=== PATIENT | female | born 1965 | race Caucasian/White ===

== ENCOUNTER 2022-05-06 06:24 | Inpatient (IN) | payer MEDICARE, OTHER ==
[~2022-05-06] VITALS: Ht 160 cm; Wt 75.2 kg
[2022-05-06] MEDS ORDERED: SODIUM CHLORIDE 0.9% 1,000 ML IV ONE ×3 (06:45→22:45)
[2022-05-06] MEDS ORDERED: ONDANSETRON HCL 4 MG/2 ML VIAL IV ONE (07:00)
[2022-05-06] MEDS ORDERED: SODIUM CHLORIDE 0.9% 1,000 ML IVB ONE (07:15)
[2022-05-06 07:28] LABS: Basophils # (auto) 0 10 ^3/uL (0-0.2); Basophils % (auto) 0.3 % (0.0-2.0); Eosinophils # (auto) 0 10 ^3/uL (0-0.8); Eosinophils % (auto) 0.2 % (0.0-7.0); Hematocrit 55.1 % (36.0-46.0); Hemoglobin 18.1 g/dL (12.2-16.2); Lymphocytes % (auto) 10.9 % (10.0-50.0); Mean Corpuscular Hemoglobin 29.3 pg (28.0-32.0); Mean Corpuscular Hgb Conc. 32.9 g/dL (32.0-36.0); Mean Corpuscular Volume 88.9 fL (80.0-100.0); Monocytes # (auto) 0.5 10 ^3/uL (0-1.3); Monocytes % (auto) 5.7 % (0.0-12.0); Neutrophils # (auto) 7.2 10 ^3/uL (1.6-8.6); Neutrophils % (auto) 82.9 % (37.0-80.0); Nucleated Red Blood Cells % 0.8 %; Red Blood Cells 6.19 10^6/uL (4.0-5.20); Red Cell Distribution Width 13.9 % (11.8-14.3); White Blood Cell 8.7 10^3/uL (4.4-10.8)
[2022-05-06 07:48] LABS: Potassium 4.8 mmol/L (3.5-5.1)
[2022-05-06 07:51] LABS: Magnesium 2.6 mg/dL (1.6-2.6)
[2022-05-06 07:52] LABS: Albumin 3.9 g/dL (3.4-5.0)
[2022-05-06 07:54] LABS: Bilirubin, Total 0.7 mg/dL (0.2-1.0); Total Protein 7.5 g/dL (6.4-8.2)
[2022-05-06 09:20] LABS: Urine Bacteria FEW /hpf (None Seen); Urine Blood TRACE /uL (Negative); Urine WBC 80 /hpf (0 - 5)
[2022-05-06] MEDS ORDERED: cefTRIAXone 1GM/50ML D5W 50 ML IV ONE (10:15)
[2022-05-06] MEDS ORDERED: InsuLIN REG 1unit/0.01ml Soln (100units/ml) IV ONE (10:15)
[2022-05-06] MEDS ORDERED: InsuLIN R (HUMAN) 100 UNITS in SODIUM CHL 0.9% 99 ML IV SCH (13:45)
[2022-05-06] MEDS ORDERED: INSULIN LANTUS (GLARGINE) 1 /0.01ml (100units/ml) SC ONE (13:45)
[2022-05-06] MEDS ORDERED: DEXTROSE (50%) 50ML SYRG IV PRN ×2 (13:45→22:45)
[2022-05-06] MEDS: SODIUM CHLORIDE 0.9% 1,000 ML IV SCH ×2 (14:06→16:49)
[2022-05-06] MEDS: ACCU-CHEK COMFORT CURVE STRIP VI SCH ×6 (14:08→22:23)
[2022-05-06] MEDS ORDERED: ONDANSETRON HCL 4 MG/2 ML VIAL IV PRN ×2 (14:15→15:00)
[2022-05-06] MEDS ORDERED: D5W/SOD CHL 0.45% 1,000 ML IV SCH (15:00)
[2022-05-06] MEDS ORDERED: SODIUM CHLORIDE 0.9% 1,000 ML IV SCH ×3 (15:00→19:45)
[2022-05-06] MEDS ORDERED: ACETAMINOPHEN 325 MG TAB PO PRN (15:15)
[2022-05-06 18:44] LABS: Calcium 8.8 mg/dL (8.5-10.1); Potassium 3.6 mmol/L (3.5-5.1)
[2022-05-06 18:47] LABS: BUN/Creatinine Ratio 21.1
[2022-05-07] MEDS: ACCU-CHEK COMFORT CURVE STRIP VI SCH ×4 (00:02→12:00)
[2022-05-07] MEDS: InsuLIN REG 1unit/0.01ml Soln (100units/ml) SC SCH ×4 (00:07→12:00)
[2022-05-07] MEDS: SODIUM CHLORIDE 0.9% 1,000 ML IV SCH ×2 (00:56→08:45)
[2022-05-07 01:01] LABS: BUN/Creatinine Ratio 18.7; Calcium 8.4 mg/dL (8.5-10.1); Potassium 3.5 mmol/L (3.5-5.1)
[2022-05-07 06:29] LABS: Chloride 115 mmol/L (98-107); Potassium 3.3 mmol/L (3.5-5.1); Sodium 144 mmol/L (136-145)
[2022-05-07 06:36] LABS: Anion Gap 11 (5-15); Blood Urea Nitrogen 11 mg/dL (7-18); Calcium 8.3 mg/dL (8.5-10.1); Carbon Dioxide 18 mmol/L (21-32); Glucose 167 mg/dL (74-106)
[2022-05-07 06:46] LABS: Basophils # (auto) 0 10 ^3/uL (0-0.2); Basophils % (auto) 0.4 % (0.0-2.0); Eosinophils # (auto) 0.1 10 ^3/uL (0-0.8); Eosinophils % (auto) 1.1 % (0.0-7.0); Hematocrit 42.4 % (36.0-46.0); Hemoglobin 14.2 g/dL (12.2-16.2); Lymphocytes # (auto) 1.2 10 ^3/uL (0.4-5.4); Lymphocytes % (auto) 21.2 % (10.0-50.0); Mean Corpuscular Hemoglobin 28.9 pg (28.0-32.0); Mean Corpuscular Hgb Conc. 33.5 g/dL (32.0-36.0); Mean Corpuscular Volume 86.4 fL (80.0-100.0); Monocytes # (auto) 0.5 10 ^3/uL (0-1.3); Monocytes % (auto) 8.6 % (0.0-12.0); Neutrophils % (auto) 68.7 % (37.0-80.0); Nucleated Red Blood Cells % 0.1 %; Red Blood Cells 4.91 10^6/uL (4.0-5.20); Red Cell Distribution Width 13.4 % (11.8-14.3); White Blood Cell 5.9 10^3/uL (4.4-10.8)
[2022-05-07 06:56] LABS: BUN/Creatinine Ratio 17.7; GFR African American 128 mL/min; GFR Non-African American 106 mL/min
[2022-05-07 10:00] VITALS: BP 139/70
[2022-05-07] MEDS ORDERED: INSULIN LANTUS (GLARGINE) 1 /0.01ml (100units/ml) SC SCH ×2 (10:00)
[2022-05-07] MEDS ORDERED: levoFLOXacin 500 MG TAB PO SCH (10:00)
[2022-05-07 13:14] LABS: Calcium 8.6 mg/dL (8.5-10.1); Potassium 3.3 mmol/L (3.5-5.1)
[2022-05-07 13:17] LABS: BUN/Creatinine Ratio 17.2
[2022-05-07] MEDS ORDERED: LEVO500T31 PO (13:36)
[2022-05-07] MEDS ORDERED: BLOO-200 XX (13:36)
[2022-05-07] MEDS ORDERED: INSUINJ37 SC (13:36)
[2022-05-07] MEDS ORDERED: INSU100I44 SC (13:36)
== END 2022-05-07 15:27 | disposition home health service (06) | DRG 638 ==
LOC: ER 06:24 → TELE 22:40
PROVIDERS: ADMIT Internal Medicine; ATTEND Internal Medicine
DX: E10.10 Type 1 diabetes mellitus with ketoacidosis without coma (principal); N39.0 Urinary tract infection, site not specified; H91.90 Unspecified hearing loss, unspecified ear; Z20.822 Contact with and (suspected) exposure to COVID-19; Z83.3 Family history of diabetes mellitus; Z91.018 Allergy to other foods
CPT/HCPCS: 36415; 71046; 74176; 80048; 80053; 81001; 82010; 82962; 83036; 83690; 83735; 85025; 87426; 87804; 93005; 96361; 96365; 96367; 96372; 96375; G0378; J0696; J1815; J2405

== ENCOUNTER 2022-05-08 11:36 | Inpatient (IN) | payer OTHER ==
[~2022-05-08] VITALS: Ht 162.6 cm; Wt 78.9 kg
[~2022-05-08 11:36] MED LIST: BLOO-200 XX; INSU100I44 SC; INSUINJ37 SC; LEVO500T31 PO
[2022-05-08 12:19] LABS: Basophils # (auto) 0 10 ^3/uL (0-0.2); Basophils % (auto) 0.3 % (0.0-2.0); Eosinophils # (auto) 0 10 ^3/uL (0-0.8); Eosinophils % (auto) 0.1 % (0.0-7.0); Hematocrit 47.8 % (36.0-46.0); Hemoglobin 16.1 g/dL (12.2-16.2); Lymphocytes # (auto) 0.5 10 ^3/uL (0.4-5.4); Lymphocytes % (auto) 5.1 % (10.0-50.0); Mean Corpuscular Hemoglobin 28.9 pg (28.0-32.0); Mean Corpuscular Hgb Conc. 33.6 g/dL (32.0-36.0); Monocytes # (auto) 0.5 10 ^3/uL (0-1.3); Monocytes % (auto) 5.2 % (0.0-12.0); Neutrophils # (auto) 9.3 10 ^3/uL (1.6-8.6); Neutrophils % (auto) 89.3 % (37.0-80.0); Red Blood Cells 5.56 10^6/uL (4.0-5.20); Red Cell Distribution Width 13.7 % (11.8-14.3); White Blood Cell 10.4 10^3/uL (4.4-10.8)
[2022-05-08 12:42] LABS: Albumin 3.3 g/dL (3.4-5.0); Anion Gap 17 (5-15); BUN/Creatinine Ratio 13.8; Blood Urea Nitrogen 9 mg/dL (7-18); Calcium 9.2 mg/dL (8.5-10.1); Carbon Dioxide 20 mmol/L (21-32); Chloride 106 mmol/L (98-107); GFR African American 121 mL/min; GFR Non-African American 100 mL/min; Glucose 262 mg/dL (74-106); Sodium 143 mmol/L (136-145)
[2022-05-08 12:45] LABS: Alanine Aminotransferase 20 U/L (13-56); Alkaline Phosphatase 100 U/L (45-117); Aspartate Aminotransferase 19 U/L (15-37); Bilirubin, Total 0.8 mg/dL (0.2-1.0); Total Protein 6.2 g/dL (6.4-8.2)
[2022-05-08 13:04] LABS: Potassium 2.8 mmol/L (3.5-5.1)
[2022-05-08] MEDS ORDERED: SODIUM CHLORIDE 0.9% 1,000 ML IV ONE (13:30)
[2022-05-08] MEDS ORDERED: ACETAMINOPHEN 325 MG TAB PO PRN (15:00)
[2022-05-08] MEDS ORDERED: ONDANSETRON HCL 4 MG/2 ML VIAL IV PRN (15:00)
[2022-05-08] MEDS ORDERED: DEXTROSE (50%) 50ML SYRG IV PRN (15:00)
[2022-05-08 15:17] LABS: Urine Bacteria NONE SEEN /hpf (None Seen); Urine Blood 2+ /uL (Negative); Urine Mucus FEW (None Seen); Urine Specific Gravity 1.028 (1.001-1.035); Urine WBC 33 /hpf (0 - 5)
[2022-05-08 16:32] LABS: BUN/Creatinine Ratio 13.8; Calcium 9.4 mg/dL (8.5-10.1)
[2022-05-08 16:51] LABS: Potassium 2.9 mmol/L (3.5-5.1)
[2022-05-08] MEDS: INSULIN LANTUS (GLARGINE) 1 /0.01ml (100units/ml) SC SCH (18:18)
[2022-05-08] MEDS: ACCU-CHEK COMFORT CURVE STRIP VI SCH ×2 (18:35→21:49)
[2022-05-08] MEDS: POTASSIUM CHL 20MEQ/100ML 100 ML IV SCH ×2 (18:44→22:00)
[2022-05-08] MEDS: InsuLIN REG 1unit/0.01ml Soln (100units/ml) SC SCH ×2 (18:51→21:55)
[2022-05-08 21:04] LABS: BUN/Creatinine Ratio 14.5
[2022-05-08 21:07] LABS: Calcium 9.3 mg/dL (8.5-10.1)
[2022-05-08] MEDS ORDERED: POTASSIUM CHL 20MEQ/100ML 100 ML IV ONE (22:00)
[2022-05-09] MEDS: ACCU-CHEK COMFORT CURVE STRIP VI SCH ×6 (00:47→20:10)
[2022-05-09] MEDS: InsuLIN REG 1unit/0.01ml Soln (100units/ml) SC SCH ×6 (00:58→20:21)
[2022-05-09 03:07] LABS: BUN/Creatinine Ratio 17.5; Calcium 8.4 mg/dL (8.5-10.1)
[2022-05-09 03:15] LABS: Potassium 2.9 mmol/L (3.5-5.1)
[2022-05-09 06:40] LABS: BUN/Creatinine Ratio 12.8; Calcium 8.5 mg/dL (8.5-10.1)
[2022-05-09] MEDS ORDERED: POTASSIUM EFFERVESENT TAB 25 MEQ PO ONE (06:45)
[2022-05-09 09:29] VITALS: BP 111/81
[2022-05-09 09:53] VITALS: BP 114/72
[2022-05-09] MEDS: INSULIN LANTUS (GLARGINE) 1 /0.01ml (100units/ml) SC SCH (10:00)
[2022-05-09] MEDS: POTASSIUM CHL 20MEQ/100ML 100 ML IV SCH ×2 (10:00→12:00)
[2022-05-09 12:37] VITALS: BP 124/56
[2022-05-09 15:44] LABS: BUN/Creatinine Ratio 9.3; Calcium 8.5 mg/dL (8.5-10.1)
[2022-05-09 16:09] VITALS: BP 106/52
[2022-05-09 20:00] VITALS: BP 106/52
[2022-05-09 21:33] LABS: BUN/Creatinine Ratio 11.9; Calcium 8.8 mg/dL (8.5-10.1)
[2022-05-09 22:00] VITALS: BP 105/41
[2022-05-10] MEDS: ACCU-CHEK COMFORT CURVE STRIP VI SCH ×3 (00:03→09:20)
[2022-05-10] MEDS: InsuLIN REG 1unit/0.01ml Soln (100units/ml) SC SCH ×3 (00:08→09:23)
[2022-05-10 05:00] VITALS: BP 115/55
[2022-05-10] MEDS ORDERED: POTASSIUM CHL 20MEQ/100ML 100 ML IV ONE (07:00)
[2022-05-10] MEDS ORDERED: POTASSIUM EFFERVESENT TAB 25 MEQ PO ONE (07:00)
[2022-05-10 09:00] VITALS: BP 113/57
[2022-05-10] MEDS: INSULIN LANTUS (GLARGINE) 1 /0.01ml (100units/ml) SC SCH (09:23)
== END 2022-05-10 11:52 | disposition left against medical advice (07) | DRG 639 ==
LOC: ER 11:36 → TELE 14:52 → TELE-CENTR 05-09 09:19
PROVIDERS: ADMIT Internal Medicine; ATTEND Internal Medicine
DX: E11.10 Type 2 diabetes mellitus with ketoacidosis without coma (principal); K59.00 Constipation, unspecified; Z53.29 Procedure and treatment not carried out because of patient's decision for other reasons; E87.6 Hypokalemia; Z20.822 Contact with and (suspected) exposure to COVID-19; Z91.199 Patient's noncompliance with other medical treatment and regimen due to unspecified reason; Z83.3 Family history of diabetes mellitus; Z79.4 Long term (current) use of insulin; Z91.14 Patient's other noncompliance with medication regimen
CPT/HCPCS: 36415; 80048; 80053; 81001; 82962; 84132; 84484; 85025; 87426; 97163; G0378; J1815; J2405; J3480